=== PATIENT | male | born 1945 | race Caucasian/White ===

== ENCOUNTER 2021-09-21 09:37 | Day surgery (SDC) | payer OTHER ==
[2021-09-20 13:53] LABS: Basophils # (auto) 0.1 10 ^3/uL (0-0.2); Basophils % (auto) 0.7 % (0.0-2.0); Eosinophils # (auto) 0.3 10 ^3/uL (0-0.8); Eosinophils % (auto) 2.8 % (0.0-7.0); Hematocrit 36.8 % (41.0-53.0); Hemoglobin 11.4 g/dL (13.5-17.5); Lymphocytes # (auto) 1.5 10 ^3/uL (0.4-5.4); Lymphocytes % (auto) 16.1 % (10.0-50.0); Mean Corpuscular Hemoglobin 21.6 pg (28.0-32.0); Mean Corpuscular Volume 69.6 fL (80.0-100.0); Monocytes # (auto) 0.8 10 ^3/uL (0-1.3); Monocytes % (auto) 8.1 % (0.0-12.0); Neutrophils # (auto) 6.9 10 ^3/uL (1.6-8.6); Neutrophils % (auto) 72.3 % (37.0-80.0); Red Blood Cells 5.28 10^6/uL (4.5-5.90); Red Cell Distribution Width 19.4 % (11.8-14.3); White Blood Cell 9.5 10^3/uL (4.4-10.8)
[2021-09-20 14:04] LABS: INR 1.01 (0.9-1.15); Partial Thromboplastin Time 26.5 sec (23.6-33.0)
[2021-09-20 14:23] LABS: Albumin 3.5 g/dL (3.4-5.0); BUN/Creatinine Ratio 19.8; Calcium 9.1 mg/dL (8.5-10.1); Potassium 4.5 mmol/L (3.5-5.1)
[2021-09-20 14:26] LABS: Bilirubin, Total 0.6 mg/dL (0.2-1.0); Total Protein 7.7 g/dL (6.4-8.2)
[~2021-09-21] VITALS: Ht 185.4 cm; Wt 111.1 kg
[~2021-09-21 09:37] MED LIST: PRAM3.75 PO
[2021-09-21] MEDS ORDERED: SODIUM CHLORIDE LOCK 10 ML ONE (10:16)
[2021-09-21] MEDS ORDERED: diphenhdrAMINE HCL 50 MG/1 ML VL ONE (10:17)
[2021-09-21] MEDS: MIDAZOLAM HCL 5 MG/ML-1ML VIAL ONE ×2 (10:20→10:23)
[2021-09-21] MEDS: fentaNYL CITRATE 100 MCG/2 ML VL ONE ×2 (10:20→10:23)
== END 2021-09-21 11:30 | disposition home or self-care (01) ==
LOC: GI 09:37
PROVIDERS: ATTEND Internal Medicine Gastroenterology
DX: K62.5 Hemorrhage of anus and rectum (principal); K64.8 Other hemorrhoids; K63.89 Other specified diseases of intestine; I10 Essential (primary) hypertension; E11.9 Type 2 diabetes mellitus without complications; Z90.49 Acquired absence of other specified parts of digestive tract; Z98.890 Other specified postprocedural states; Z79.899 Other long term (current) drug therapy; Z20.822 Contact with and (suspected) exposure to COVID-19; Z88.6 Allergy status to analgesic agent; Z98.84 Bariatric surgery status; Z95.0 Presence of cardiac pacemaker; Z86.2 Personal history of diseases of the blood and blood-forming organs and certain disorders involving the immune mechanism
CPT/HCPCS: 36415; 45378; 80053; 85025; 85610; 85730; J1200; J2250; J3010; J7030; U0003; G0500

== ENCOUNTER 2023-01-09 06:11 | Inpatient (IN) | payer OTHER ==
[~2023-01-09] VITALS: Ht 182.9 cm; Wt 108.3 kg
[~2023-01-09 06:11] MED LIST changes: +CYAN-17 PO; +HYDR-4902 PO; +IBUP-1453 PO; +PRAM1.5T4 PO; -PRAM3.75 PO
[2023-01-09] MEDS ORDERED: ceFAZolin 1GM/50ML 100 ML IV ONE (06:12)
[2023-01-09] MEDS ORDERED: LIDOCAINE 1%-Mpf/Epinephrine 1:200,000 30ml VIAL ONE (07:22)
[2023-01-09] MEDS ORDERED: MIDAZOLAM HCL 2MG/2ML 2ml VIAL (1mg/ml) ONE (07:32)
[2023-01-09] MEDS ORDERED: fentaNYL CITRATE 5 ML ONE (07:32)
[2023-01-09] MEDS ORDERED: fentaNYL CITRATE 100 MCG/2 ML VL ONE (07:32)
[2023-01-09] MEDS ORDERED: LIDOCAINE 2% (LOCAL ANESTH.) PF 5ml SDV ONE (07:39)
[2023-01-09] MEDS ORDERED: ROCURONIUM 10MG/ML 10ML VIAL IV ONE (07:39)
[2023-01-09] MEDS ORDERED: PROPOFOL 10 MG/ML 20 ML IV ONE (07:39)
[2023-01-09] MEDS ORDERED: ONDANSETRON HCL 4 MG/2 ML VIAL ONE (07:39)
[2023-01-09] MEDS ORDERED: HYDROmorphone HCL 2 MG/ML VL/or syr ONE ×2 (08:33→11:58)
[2023-01-09] MEDS ORDERED: ONDANSETRON HCL 4 MG/2 ML VIAL IV PRN (09:15)
[2023-01-09] MEDS ORDERED: fentaNYL CITRATE 100 MCG/2 ML VL IV PRN (09:30)
[2023-01-09] MEDS ORDERED: ETOMIDATE (2MG/ML) 20ML VIAL IV ONE (09:45)
[2023-01-09] MEDS ORDERED: GLYCOPYRROLATE 0.2 MG/ML 1ML VIAL ONE (09:51)
[2023-01-09] MEDS ORDERED: NEOSTIGMINE 1 MG/ML INJ (10mg/10ML VIAL) ONE (09:51)
[2023-01-09 10:03] VITALS: O2SAT 100
[2023-01-09] MEDS ORDERED: NITROGLYCERIN 0.4 MG SL TAB SL PRN (10:30)
[2023-01-09] MEDS ORDERED: D5W/SOD CHL 0.45%/KCL 20MEQ 1,000 ML IV SCH ×2 (10:30→14:00)
[2023-01-09] MEDS ORDERED: HYDROcodone-ACET 5/325MG TAB PO PRN (12:00)
[2023-01-09] MEDS ORDERED: HYDROmorphone HCL 2 MG/ML VL/or syr IV PRN (12:00)
[2023-01-09 13:55] VITALS: BP 151/82; PULSE 75; RESP 19; TEMP 97.1; O2SAT 97
[2023-01-09] MEDS ORDERED: hydrALAZINE HCL 20 MG/ML VL IV PRN (14:15)
[2023-01-09] MEDS: ceFAZolin 1GM/50ML 50 ML IV SCH ×2 (15:00→21:20)
[2023-01-09 17:00] VITALS: BP 153/86; PULSE 80; RESP 18; TEMP 98.5; O2SAT 95
[2023-01-09] MEDS: PRAMIPEXOLE DIHYDROCHLORIDE MO 0.25 MG TAB PO SCH ×2 (17:00→21:19)
[2023-01-09 20:05] VITALS: PULSE 77; RESP 19; O2SAT 98
[2023-01-09 22:00] VITALS: BP 153/68; PULSE 82; RESP 19; TEMP 98.2; O2SAT 98
[2023-01-10] MEDS: PRAMIPEXOLE DIHYDROCHLORIDE MO 0.25 MG TAB PO SCH (06:00)
[2023-01-10] MEDS ORDERED: TAMSULOSIN HYDROCHLORIDE 0.4 MG CAP PO ONE (11:12)
[2023-01-10 11:19] LABS: Alanine Aminotransferase 132 U/L (7-40); Albumin 3.5 g/dL (3.2-4.8); Alkaline Phosphatase 184 U/L (46-116); Anion Gap 6 (5-15); Aspartate Aminotransferase 225 U/L (13-40); BUN/Creatinine Ratio 7.8 (10.0-20.0); Bilirubin, Total 0.6 mg/dL (0.2-1.0); Blood Urea Nitrogen 8 mg/dL (9-23); Calcium 8.6 mg/dL (8.5-10.1); Carbon Dioxide 22 mmol/L (20-30); Chloride 110 mmol/L (98-107); Glucose 140 mg/dL (74-106); Potassium 3.7 mmol/L (3.5-5.1); Sodium 138 mmol/L (136-145)
[2023-01-10 11:48] LABS: Basophils # (auto) 0 10 ^3/uL (0-0.2); Basophils % (auto) 0.4 % (0.0-2.0); Eosinophils # (auto) 0 10 ^3/uL (0-0.8); Monocytes # (auto) 0.7 10 ^3/uL (0-1.3); Neutrophils # (auto) 5.7 10 ^3/uL (1.6-8.6)
[2023-01-10 11:50] LABS: Eosinophils % (auto) 0.6 % (0.0-7.0); Hematocrit 34.3 % (41.0-53.0); Hemoglobin 10.9 g/dL (13.5-17.5); Lymphocytes # (auto) 0.7 10 ^3/uL (0.4-5.4); Lymphocytes % (auto) 9.6 % (10.0-50.0); Mean Corpuscular Hemoglobin 26.5 pg (28.0-32.0); Mean Corpuscular Hgb Conc. 31.8 g/dL (32.0-36.0); Mean Corpuscular Volume 83.5 fL (80.0-100.0); Monocytes % (auto) 9.8 % (0.0-12.0); Neutrophils % (auto) 79.6 % (37.0-80.0); Red Blood Cells 4.11 10^6/uL (4.5-5.90); Red Cell Distribution Width 15.9 % (11.8-14.3); White Blood Cell 7.1 10^3/uL (4.4-10.8)
[2023-01-10 13:17] LABS: Urine Bacteria NONE SEEN /hpf (None Seen); Urine Blood 2+ /uL (Negative); Urine Clarity Clear (Clear); Urine Color Yellow (Yellow); Urine Protein, UAD TRACE (Negative); Urine Specific Gravity 1.018 (1.001-1.035); Urine Urobilinogen Normal (Negative); Urine WBC 1 /hpf (0 - 3)
[2023-01-10] MEDS ORDERED: CEPH500T PO (14:09)
[2023-01-10] MEDS ORDERED: TRAM50TA2 PO (14:09)
[2023-01-10 14:56] VITALS: TEMP 36.8
== END 2023-01-10 16:00 | disposition home or self-care (01) | DRG 493 ==
LOC: SUR 06:11 → OVERFLOW 10:28 → TELE-WESTW 13:53
PROVIDERS: ADMIT Orthopaedic Surgery; ATTEND Orthopaedic Surgery
PROC: 0PSG04Z Reposition Left Humeral Shaft with Internal Fixation Device, Open Approach (ICD-10-PCS; principal; 2023-01-09 07:44)
DX: S42.412A Displaced simple supracondylar fracture without intercondylar fracture of left humerus, initial encounter for closed fracture (principal); L03.116 Cellulitis of left lower limb; I10 Essential (primary) hypertension; G25.81 Restless legs syndrome; Z95.0 Presence of cardiac pacemaker; Z96.652 Presence of left artificial knee joint; R74.01 Elevation of levels of liver transaminase levels; R79.89 Other specified abnormal findings of blood chemistry; W18.39XA Other fall on same level, initial encounter; Y93.89 Activity, other specified; Y92.89 Other specified places as the place of occurrence of the external cause; Y99.8 Other external cause status; Z88.5 Allergy status to narcotic agent
CPT/HCPCS: 36415; 73060; 76000; 80053; 81001; 85025; G0378; J0690; J2001; J2250; J2405; J2704